=== PATIENT | female | born 1960 | race African-American/Black ===

== ENCOUNTER → 2016-09-08 | Outpatient (CLI) | payer OTHER ==
--- NOTE | 2016-09-08 12:29 | KCIC ---
PROCEDURE Barium esophagram HISTORY Chronic dysphagia, choking on fluid and solids, normal endoscopy 2 years ago COMPARISON None FINDINGS Barium esophagram was performed. No mucosal abnormality was identified. However there was incomplete relaxation of the lower esophageal sphincter although otherwise normal esophageal motility. There is mild relative dilatation of the distal esophagus. No hiatal hernia was demonstrated. Fluoroscopy time: 1 minutes 48 seconds, 17 images IMPRESSION 1. There was incomplete relaxation of the lower esophageal sphincter throughout exam, concerning for of achalasia which could be confirmed with manometry. Electronically signed by: Nelson Knowles MD (Sep 08, 2016 12:28:10)
== END | disposition home or self-care (01) ==
LOC: KCIC 11:00
PROVIDERS: ATTEND Family Medicine
DX: R47.02 Dysphasia (principal)
CPT/HCPCS: 74220